=== PATIENT | female | born 1935 | race Caucasian/White ===

== ENCOUNTER 2016-09-23 11:17 | Inpatient (IN) | payer MEDICARE ==
--- NOTE | 2016-09-23 11:23 | ERNOTE ---
Neuro HPI ER Record Presenting Symptoms: weakness, confusion Time Seen by Provider: 09/23/16 11:17 Source: EMS Exam Limitations: clinical condition Allergies/Adverse Reactions: Allergies Allergy/AdvReac Type Severity Reaction Status Date / Time codeine Allergy Severe Anaphylaxis Verified 04/07/14 15:05 acetaminophen [From Tylenol] Allergy Intermediate Itching Verified 04/07/14 15: 05 Penicillins Allergy Intermediate Itching Verified 04/07/14 15:05 morphine Allergy Mild Nausea Verified 04/07/14 15:05 oxycodone [Oxycodone] Allergy Mild Itching Verified 04/11/14 10:48 tramadol Allergy Mild Itching Verified 04/07/14 15:05 Home Medications: HOME MEDICATIONS Amlodipine Besylate [Norvasc] 10 mg PO DAILY 04/07/14 [Last Taken Unknown] Glipizide [Glucotrol Xl] 2.5 mg PO DAILY 04/07/14 [Last Taken Unknown] Insulin Detemir [Levemir] 25 units SQ DAILY 04/07/14 [Last Taken Unknown] Omeprazole [Prilosec] 40 mg PO DAILY 04/07/14 [Last Taken Unknown] RX: Lisinopril 40 mg PO DAILY 04/07/14 [Last Taken Unknown] RX: Simvastatin 40 mg PO DAILY 04/07/14 [Last Taken Unknown] RX: Oxycodone HCl 5 mg PO PRN PRN 04/11/14 [Last Taken Unknown] - History of Present Illness Narrative: Patients neighbor initiated a well check by the police this morning who fund the patient unresponsive and initiated ambulance transfer to the hospital. Unkown when patient was last seen normal Date (Duration): 09/23/16 Time (Timing): 11:00 Onset: cannot confirm onset - Character of Deficits Baseline Cognition: Present: alert, oriented x 4 Review of Systems - Narrative Narrative: unable to obtain - Patient's Past Medical History Patient History - Medical: Diabetes Type 2 Patient History - Cardiac/Respiratory: Hypertension Physical Exam - Physical Exam General Appearance: Present: wd/wn, alert, no apparent distress Eye Exam: PERRL: bilateral, Other: bilateral - pupils deviated to the left Ears, Nose, Throat: Present: normal pharynx, dry mucous membranes Respiratory: Present: no respiratory distress, normal breath sounds, lungs clear Cardiovascular/Chest: Present: regular rate, rhythm Gastrointestinal/Abdominal: Present: nondistended, soft Neurological Exam: Present: other - right side flacid, patient moves left arm, does not follow up commands Skin Exam: Present: normal color, warm/dry [place] Coma Scale - Assess Eye Opening: Spontaneous Motor: Localizes to Pain Verbal: None - Total Coma Scale Total: 10 Initial Stroke Assessment - NIH Stroke Scale Level of Consciousness: Alert Right Arm Motor (10 sec hold): No movement Left Arm Motor (10 sec hold): Not testable Right Leg Motor (5 sec hold): Not testable Left Leg Motor (5 sec hold): Not testable Limb Ataxia (finger/nose heel/jiménez): Untestable Dysarthria (speech clarity): Untestable ED Progress - Results and Orders Patient's Lab Results:: I have reviewed the patient's lab results. - Vital Signs Patient's Vital Signs:: I have reviewed the patient's vital signs. - EKG EKG: NSR, nonspecific ST T wave changes EKG read: Interp. by me - X-Ray X-Ray #1 X-Ray: chest - chronic changes, no acute Interpretation: Reviewed by me - CT/Ultrasound CT/Ultrasound Narrative: CT head no acute (discussed with radiologist) - Progress/Reassessment Chief Complaint: CerebroVascular Accident Progress Note-Subjective: 09/23/16 11:46 patient moving both feet (toes), looking straight ahead, not following commands 09/23/16 12:00 sister at bedside, patient turning head to her voice, still not following commands 09/23/16 12:10 blood pressure over 200 systolic, will give labetolol 09/23/16 13:19 no change in neuro exam, BP 182/95 sister talked to son 09/23/16 15:26 exam unchanged, opens eyes when spoken too, doesn't follow commands, moves left arm and leg 09/23/16 15:26 called and talked to Tang Dunn (son) explained symptoms and diagnosis of stroke with poor chances of recovery at this point, son would prefer admission here rather than transfer discussed code status at length, decided on DNR (no CPR, no intubation) 09/23/16 15:[address] Mantilla, okay to admit, get MRI, insulin sliding scale, labetolol for blood pressure over 200 Departure Clinical Impression: CVA (cerebral vascular accident) Qualifiers: CVA mechanism: unspecified Qualified Code(s): I63.9 - Cerebral infarction, unspecified - Departure Disposition: [facility] Condition: Fair
[2016-09-23] MEDS ORDERED: LABETALOL HCL 5 MG/ML VIAL IV ONE (12:09)
[2016-09-23 12:22] LABS: Hematocrit 41.5 % (37.0-47.0); Hemoglobin 13.7 gm/dL (12.5-16.0); Mean Cell Volume 86.3 fl (78-100); Mean Corpuscular Hemoglobin 28.5 pg (27-31); Mean Platelet Volume 10.6 fl (6.0-9.5); Neutrophil # 9.2 K/mm3 (1.3-6.0); Neutrophil % 79.5 % (42-75.0); Platelet Count 210 K/mm3 (150-450); Red Blood Count 4.81 M/mm3 (4.2-5.4); Red Cell Distribution Width 13.3 % (11.5-14.0); White Blood Count 11.5 K/mm3 (4.0-10.5)
[2016-09-23 12:30] LABS: INR 1.06 INR (0.90-1.10); Partial Thrombolplastin Time 25.2 Seconds (24-32)
[2016-09-23 12:35] LABS: Albumin * 3.9 gm/dl (3.4-5.0); Anion Gap 16.4 mmol/L (6.8-13.8); Ca. Corrected For Albumin 8.6 mg/dL (8.4-10.2); Calcium * 8.8 mg/dL (7.9-10.9); Carbon Dioxide 26.9 mmol/L (24-32.6); Potassium 4.3 mmol/L (3.4-4.6); Total Protein 7.5 gm/dL (6.2-8.2)
[2016-09-23 14:04] LABS: Urine Bilirubin Negative (NEGATIVE); Urine Blood 25 /ul (NEGATIVE); Urine Ketone 5 mg/dL (NEGATIVE); Urine Nitrite Negative (NEGATIVE); Urine Protein 100 mg/dL (NEGATIVE); Urine Specific Gravity 1.025 SP.GR. (1.005-1.010); Urine Urobilinogen Normal (NORMAL)
[2016-09-23 14:18] LABS: Urine Appearance Slightly Cloudy; Urine Bacteria 4+; Urine Color Yellow; Urine RBC TRACE /hpf (0-5); Urine WBC None Seen /hpf (0-5)
[2016-09-23] MEDS ORDERED: ASPIRIN 300 MG SUPP.RECT RC ONE ×2 (14:32→14:34)
[2016-09-23] MEDS ORDERED: LABETALOL HCL 5 MG/ML VIAL IV PRN (16:11)
--- NOTE | 2016-09-23 17:49 | HP ---
[id number] 17:24 Chief Complaint: unresponsiveness History of Present Illness: Nkechi Mlegar, is an 81-year-old white female, with previous medical history of diabetes mellitus type 2, essential hypertension, hyperlipidemia, myocardial infarction, COPD who was brought to the emergency room today on 09/22/2016 because of unresponsiveness. The neighbor of the patient did not see her today and so she called the police to do a check on her. When they went into the house, she was found unresponsive and so they brought her to the emergency room. She was found to have right hemiparesis/ hemiplegia. She was unresponsive. Her CT scan showed no evidence of acute intracranial process . As per her nieces, who are with her bedside, the last time her their mother was able to talk to her was last Friday. She called to tell her that she was not be able to go visit her brother her because she was not feeling well. Her blood pressure in the emergency room was over 200 and so she got an IV bolus of labetalol. She was then admitted for further evaluation and treatment. The emergency room doctor was able to talk to her son who made her a DNR. - Patient's Past Medical History Patient History - Medical: Diabetes Type 2, GERD Patient History - Cardiac/Respiratory: COPD, Hypertension, Hyperlipidemia, Myocardial Infarction Patient History - Cancer: History Unknown - Family History Father Family History - Cardiac/Respiratory: Hypertension Mother Family History - Cardiac/Respiratory: Myocardial Infarction Review Of Systems (GEN) - Review of Systems EENTM: Present: No Symptoms Reported Respiratory: Present: No Symptoms Reported Cardiac: Present: No Symptoms Reported Abdominal: Present: No Symptoms Reported Genitourinary: Present: No Symptoms Reported Musculoskeletal: Present: No Symptoms Reported Neurological: Present: No Symptoms Reported Skin: Present: No Symptoms Reported Endocrine: Present: No Symptoms Reported Misc: All systems neg except as marked - Patient is not answering verbally to my questions, did squeeze with her left hand and moved her left foot and toes with my command. Allergies/Adverse Reactions: Allergies Allergy/AdvReac Type Severity Reaction Status Date / Time codeine Allergy Severe Anaphylaxis Verified 04/07/14 15:05 acetaminophen [From Tylenol] Allergy Intermediate Itching Verified 04/07/14 15: 05 Penicillins Allergy Intermediate Itching Verified 04/07/14 15:05 morphine Allergy Mild Nausea Verified 04/07/14 15:05 oxycodone [Oxycodone] Allergy Mild Itching Verified 04/11/14 10:48 tramadol Allergy Mild Itching Verified 04/07/14 15:05 tuberculin,PPD,multi-puncture Allergy Verified 09/23/16 17:56 Home Medications: HOME MEDICATIONS Amlodipine Besylate [Norvasc] 10 mg PO DAILY 04/07/14 [Last Taken Unknown] Glipizide [Glucotrol Xl] 2.5 mg PO DAILY 04/07/14 [Last Taken Unknown] Insulin Detemir [Levemir] 25 units SQ DAILY 04/07/14 [Last Taken Unknown] Lisinopril 40 mg PO DAILY 04/07/14 [Last Taken Unknown] Omeprazole [Prilosec] 40 mg PO DAILY 04/07/14 [Last Taken Unknown] Simvastatin 40 mg PO DAILY 04/07/14 [Last Taken Unknown] Oxycodone HCl 5 mg PO PRN PRN 04/11/14 [Last Taken Unknown] Metformin HCl [Metformin HCl ER] 500 mg PO 09/23/16 [Last Taken Unknown] Exam - Exam Vital Signs: Vital Signs - Last Taken Temp 36.2 C L 09/23/16 11:35 Pulse 85 09/23/16 15:17 Resp 19 09/23/16 15:17 BP 176/94 09/23/16 15:17 Pulse Ox 93 09/23/16 15:17 Constitutional: Present: Obtunded, Elderly, Thin and frail ENT Exam: Present: hearing grossly normal Eye Exam: bilateral eye: other - unable to accurately exam- closes her eyes Neck: Present: supple Back Exam: Present: other - not examined Breasts: Present: Exam deferred Respiratory: Present: decreased breath sounds, No rales, No wheezing Cardiovascular/Chest: Present: regular rate, rhythm, no JVD, no murmur Abdomen: Present: Normal bowel sounds, soft, nontender, nondistended Extremity: Present: no pedal edema, no calf tenderness Neurologic: Present: motor weakness - right, disoriented x 3 Diagnostic Studies: Laboratory Results WBC 11.5 K/mm3 (4.0-10.5) H 09/23/16 11:36 RBC 4.81 M/mm3 (4.2-5.4) 09/23/16 11:36 Hgb 13.7 gm/dL (12.5-16.0) 09/23/16 11:36 Hct 41.5 % (37.0-47.0) 09/23/16 11:36 MCV 86.3 fl (78-100) 09/23/16 11:36 MCH 28.5 pg (27-31) 09/23/16 11:36 MCHC 33.0 g/dl (32-36) 09/23/16 11:36 RDW 13.3 % (11.5-14.0) 09/23/16 11:36 Plt Count 210 K/mm3 (150-450) 09/23/16 11:36 MPV 10.6 fl (6.0-9.5) H 09/23/16 11:36 Immature Gran % (Auto) 0.50 % (0.001-0.429) H 09/23/16 11:36 Immature Gran # (Auto) 0.06 K/mm3 (0.000-0.0310) H 09/23/16 11:36 Neutrophils % 79.5 % (42-75.0) H 09/23/16 11:36 Lymphocytes % 13.2 % (20-51) L 09/23/16 11:36 Monocytes % 6.6 % (0.0-9) 09/23/16 11:36 Eosinophils % 0.1 % (0.0-3.0) 09/23/16 11:36 Basophils % 0.1 % (0.0-1.0) 09/23/16 11:36 Nucleated RBC % 0.0 k/mm3 (0-1) 09/23/16 11:36 Neutrophils # 9.2 K/mm3 (1.3-6.0) H 09/23/16 11:36 Lymphocytes # 1.5 k/mm3 (1.5-3.5) 09/23/16 11:36 Monocytes # 0.8 k/mm3 (0.0-1.0) 09/23/16 11:36 Eosinophils # 0.0 k/mm3 (0.0-0.7) 09/23/16 11:36 Absolute Basophils 0.0 k/mm3 (0.0-0.1) 09/23/16 11:36 ESR 15 mm/hr (0-15) 09/23/16 11:36 PT 11.0 Seconds (9.4-11.4) 09/23/16 11:36 INR (Anticoag Therapy) 1.06 INR (0.90-1.10) 09/23/16 11:36 PTT (Tyrese) 25.2 Seconds (24-32) 09/23/16 11:36 Sodium 137 mmol/L (132-142) 09/23/16 11:36 Plasma Sodium 140 mmol/L (130-142) 09/23/16 11:36 Potassium 4.3 mmol/L (3.4-4.6) 09/23/16 11:36 Chloride 98 mmol/L (97-106) 09/23/16 11:36 Carbon Dioxide 26.9 mmol/L (24-32.6) 09/23/16 11:36 Anion Gap 16.4 mmol/L (6.8-13.8) H 09/23/16 11:36 BUN 27 mg/dL (3-23) H 09/23/16 11:36 Creatinine 1.23 mg/dL (0.4-1.4) 09/23/16 11:36 Est GFR (Non-Af Amer) 44 mL/min (60-130) L 09/23/16 11:36 BUN/Creatinine Ratio 22.0 (9.0-21.6) H 09/23/16 11:36 Random Glucose 289 mg/dL (70-110) H 09/23/16 11:36 Calcium 8.8 mg/dL (7.9-10.9) 09/23/16 11:36 Calcium Adj for Albumin 8.6 mg/dL (8.4-10.2) 09/23/16 11:36 Total Bilirubin 1.0 mg/dL (0.0-1.1) 09/23/16 11:36 AST 29 U/L (0-48) 09/23/16 11:36 ALT 22 U/L (19-67) 09/23/16 11:36 Alkaline Phosphatase 96 U/L (50-170) 09/23/16 11:36 Total Protein 7.5 gm/dL (6.2-8.2) 09/23/16 11:36 Albumin 3.9 gm/dl (3.4-5.0) 09/23/16 11:36 Urine Color Yellow 09/23/16 13:48 Urine Appearance Slightly cloudy 09/23/16 13:48 Urine pH 6.0 pH (5.0-7.0) 09/23/16 13:48 Ur Specific [place] 1.025 SP.GR. (1.005-1.010) 09/23/16 13:48 Urine Protein 100 mg/dL (NEGATIVE) H 09/23/16 13:48 Urine Glucose (UA) 500 mg/dL (NEGATIVE) H 09/23/16 13:48 Urine Ketones 5 mg/dL (NEGATIVE) 09/23/16 13:48 Urine Blood 25 /ul (NEGATIVE) H 09/23/16 13:48 Urine Nitrate Negative (NEGATIVE) 09/23/16 13:48 Urine Bilirubin Negative mg/dl (NEGATIVE) 09/23/16 13:48 Prot Sulfosalicylic Acd 4+ mg/dL (0) H 09/23/16 13:48 Urine Urobilinogen Normal EU/dl (NORMAL) 09/23/16 13:48 Ur Leukocyte Esterase Negative /ul (NEGATIVE) 09/23/16 13:48 Urine RBC Trace /hpf (0-5) 09/23/16 13:48 Urine WBC None seen /hpf (0-5) 09/23/16 13:48 Ur Epithelial Cells None seen /hpf (0-5) 09/23/16 13:48 Urine Bacteria 4+ (NONE) H 09/23/16 13:48 Urine Culture Comments No culture indicated 09/23/16 13:48 Assessment/Plan - Assessment/Plan (1) CVA (cerebral vascular accident) Assessment: with right hemiparesis. Will get MRI in the morning, CUS, Echo with bubble study. Will refer her to PT/OT. Will leave it up to her PCP is wants to get neurology consult and will start her on ASA. Problem: Acute Qualifiers: CVA mechanism: unspecified Qualified Code(s): I63.9 - Cerebral infarction, unspecified (2) Hypertension Assessment: uncontrolled. Problem: Chronic Qualifiers: Hypertension type: essential hypertension Qualified Code(s): I10 - Essential (primary) hypertension (3) Diabetes mellitus type 2 in nonobese Assessment: will do accuchecks. Problem: Chronic (4) Hyperlipidemia Problem: Acute Qualifiers: Hyperlipidemia type: mixed hyperlipidemia Qualified Code(s): E78.2 - Mixed hyperlipidemia
[2016-09-23 18:19] LABS: CRP 1.2 mg/dL (0.0-0.9); Chol/HDL Risk Ratio 6.8 mg/dL (3.3-4.4)
[2016-09-23] MEDS: INSULIN LISPRO 100 UNITS/ML VIAL SC SCH ×2 (18:20→21:44)
[2016-09-23] MEDS: NORMAL SALINE 1,000 ML IV PRN (20:57)
[2016-09-24] MEDS: INSULIN LISPRO 100 UNITS/ML VIAL SC SCH ×5 (05:05→20:25)
[2016-09-24] MEDS: NORMAL SALINE 1,000 ML IV PRN ×2 (07:01→20:23)
--- NOTE | 2016-09-24 08:58 | PN ---
Subjective - Date and Time Seen Date: 09/24/16 Time: 08:32 Subjective Narrative: Patient seen today no acute distress, she is non-verbal and respond to tactile and verbal commands. Objective Objective Narrative: No response due to medical condition - Review of Systems Generalized/Overall Review: Reports: No Symptoms Reported EENTM: Reports: No Symptoms Reported Respiratory: Reports: No Symptoms Reported Cardiac: Reports: No Symptoms Reported Abdominal: Reports: No Symptoms Reported Genitourinary Symptoms: Reports: No Symptoms Reported Musculoskeletal Complaints: Reports: No Symptoms Reported Neurological: Reports: No Symptoms Reported Skin: Reports: No Symptoms Reported - Vitals Vitals: Last Vital Signs Temp 37.3 C 09/24/16 06:18 Pulse 91 09/24/16 06:18 Resp 20 09/24/16 06:18 BP 158/80 09/24/16 07:17 Pulse Ox 97 09/24/16 06:18 - Exam Constitutional: Present: Cooperative, Obtunded, Elderly, Thin and frail ENT Exam: Present: moist mucous membranes, other - dentures, gag reflex Neck: Present: full range of motion Breasts: Present: Exam deferred Respiratory: Present: chest non-tender, lungs clear, normal breath sounds, no respiratory distress Cardiovascular/Chest: Present: normal peripheral pulses, regular rate, rhythm, no chest tenderness, no edema, no gallop Abdomen: Present: Normal bowel sounds, soft, nontender, nondistended, no rebound tenderness /Rectal: Present: Exam deferred Extremity: Present: non-tender, normal inspection, other - left foot dosiflex, right foot plantar flex ,left hand 5/5,( Rightside hemiparesis) Neurologic: Present: facial droop - rightside, motor weakness, depressed affect Appearance: Present: other - flat affect Cauti Physician Documentation - Urinary Catheter Management Urethral (Escalante) Date of Insertion: 09/23/16 Time of Insertion: 13:00 Assessment/Plan Plan Narrative: CVA- CT head:No acute intracranial hemorrhage or mass affect. Age related cortical atrophy and periventricular white matter . chronic ischemic changes and present intracranial atherosclerotic calcification noted. Aspirin was given overnight Initiated telemetry currently NSR MRI head, carotid duplex and echo with bubble study pending CK pending concern for rhabdomyolysis: pt was found unresponsive on the floor at home. Continue with PT/OT evaluation and treatment Keep NPO until Speech/ swallow evaluation completed , pt observed to have gag reflex. In acute stage keep SBP > 160. PRN labetalol for SBP> 200 Monitor Vital signs Continue with neuro checks Safety measures while hospitalized Anticipate placement upon discharge with extensive therapy Hyperlipidemia On adm Lipid panel elevated cholesterol 316----> LDL 243-----> HDL 46 Anticipate initiating statin when pt is able to take oral medications Hypertension Today BP 189/87-----> 158/80 In acute stage keep SBP > 160. PRN labetalol for SBP> 200 Monitor Vital signs Diabetes Monitor AC+HS and lispro Will hold insulin while pt is NPO Code status : Full VTE ppx: Lovenox - Problems/Diagnosis (1) CVA (cerebral vascular accident) Problem: Acute Qualifiers: CVA mechanism: unspecified Qualified Code(s): I63.9 - Cerebral infarction, unspecified (2) Hyperlipidemia Problem: Acute Qualifiers: Hyperlipidemia type: mixed hyperlipidemia Qualified Code(s): E78.2 - Mixed hyperlipidemia (3) Diabetes mellitus type 2 in nonobese Problem: Chronic (4) Hypertension Problem: Chronic Qualifiers: Hypertension type: essential hypertension Qualified Code(s): I10 - Essential (primary) hypertension
[2016-09-24] MEDS: ENOXAPARIN SODIUM 40 MG/0.4 ML SYRG SC SCH (09:47)
[2016-09-24 10:45] LABS: CKMB 1.9 ng/mL (0.0-9.0)
[2016-09-24] MEDS ORDERED: LORazepam 2 MG/ML DISP.SYRIN IV ONE (11:00)
[2016-09-24] MEDS ORDERED: PANTOPRAZOLE SODIUM 40 MG in NORMAL SALINE 100 ML IV SCH (12:30)
[2016-09-24] MEDS: ASPIRIN 300 MG SUPP.RECT RC SCH (12:44)
[2016-09-24] MEDS: ONDANSETRON HCL/PF 2 MG/ML VIAL IV PRN (14:16)
--- NOTE | 2016-09-24 16:09 | PN ---
Progess Note - Interim Narrative: 09/24/16 16:[address] Solitario neuro service, His recommendations are : clinically pt had a CVA thats not showing on MRI head. Will plan for repeated MRI within a day when pt is able to remain in position. Anticipate for intensive inpt rehab after physical therapy recommendations. Continue with aspirin and statin when swallow eval complete or consider NGT if pt remain dysphagic vs PEG placement. No need for transfer as pt is outside the window for treatment with [facility]. Continue with medical management of blood glucose and blood pressure. 09/24/16 16:08 Spoke with Pt sister she was made aware of neuro recommendations. Per sister Pt son (CARLOS) is on flight traveling to [place] from [place], he will be here tomorrow to discuss in more details.
[2016-09-24] MEDS: ATORVASTATIN CALCIUM 40 MG TABLET PO SCH (20:21)
[2016-09-25] MEDS: INSULIN LISPRO 100 UNITS/ML VIAL SC SCH ×6 (00:38→20:29)
[2016-09-25 05:36] LABS: Hematocrit 32.7 % (37.0-47.0); Hemoglobin 10.7 gm/dL (12.5-16.0); Mean Cell Volume 87.7 fl (78-100); Mean Corpuscular Hemoglobin 28.7 pg (27-31); Mean Corpuscular Hgb Conc 32.7 g/dl (32-36); Mean Platelet Volume 10.1 fl (6.0-9.5); Platelet Count 137 K/mm3 (150-450); Red Blood Count 3.73 M/mm3 (4.2-5.4); Red Cell Distribution Width 13.2 % (11.5-14.0)
[2016-09-25 05:57] LABS: Anion Gap 13.3 mmol/L (6.8-13.8); BUN/Creatinine Ratio 23.1 (9.0-21.6); Calcium * 8.2 mg/dL (7.9-10.9); Carbon Dioxide 25.2 mmol/L (24-32.6); Estimated Creat Clear 42.9; Potassium 3.5 mmol/L (3.4-4.6)
[2016-09-25] MEDS: PANTOPRAZOLE SODIUM 40 MG TABLET.EC PO SCH (06:52)
[2016-09-25] MEDS: ASPIRIN 300 MG SUPP.RECT RC SCH (08:52)
[2016-09-25] MEDS: ASPIRIN 81 MG TABLET.DR PO SCH (08:52)
[2016-09-25] MEDS: ENOXAPARIN SODIUM 40 MG/0.4 ML SYRG SC SCH (08:52)
[2016-09-25] MEDS: LISINOPRIL 40 MG TABLET PO SCH (08:52)
[2016-09-25] MEDS: ATORVASTATIN CALCIUM 40 MG TABLET PO SCH (20:31)
[2016-09-25] MEDS: NORMAL SALINE 1,000 ML IV PRN (21:39)
[2016-09-26] MEDS: PANTOPRAZOLE SODIUM 40 MG TABLET.EC PO SCH (07:58)
[2016-09-26] MEDS: INSULIN LISPRO 100 UNITS/ML VIAL SC SCH ×4 (07:59→20:20)
[2016-09-26] MEDS ORDERED: LORazepam 2 MG/ML DISP.SYRIN IV PRN (08:00)
[2016-09-26 08:02] LABS: Hemoglobin 11.4 gm/dL (12.5-16.0); Mean Cell Volume 87.7 fl (78-100); Mean Corpuscular Hemoglobin 28.6 pg (27-31); Mean Corpuscular Hgb Conc 32.6 g/dl (32-36); Mean Platelet Volume 10.5 fl (6.0-9.5); Platelet Count 150 K/mm3 (150-450); Red Blood Count 3.99 M/mm3 (4.2-5.4); Red Cell Distribution Width 13.2 % (11.5-14.0); White Blood Count 8.1 K/mm3 (4.0-10.5)
[2016-09-26 08:15] LABS: Anion Gap 11.4 mmol/L (6.8-13.8); BUN/Creatinine Ratio 19.2 (9.0-21.6); Calcium * 8.6 mg/dL (7.9-10.9); Carbon Dioxide 27.8 mmol/L (24-32.6); Estimated Creat Clear 39.4; Potassium 3.2 mmol/L (3.4-4.6)
--- NOTE | 2016-09-26 08:19 | PN ---
Subjective - Date and Time Seen Date: 09/25/16 Time: 07:30 Subjective Narrative: Patient seen and examined at bedside on 09.25.2016. No acute issues overnight. Patient is more alert this AM but still does not follow all commands appropriately and has difficulty communicating. Objective Objective Narrative: Thorough ROS unable to obtain secondary to clinical condition - Review of Systems Generalized/Overall Review: Reports: No Symptoms Reported EENTM: Reports: No Symptoms Reported Respiratory: Reports: No Symptoms Reported Cardiac: Reports: No Symptoms Reported Abdominal: Reports: No Symptoms Reported Genitourinary Symptoms: Reports: No Symptoms Reported Musculoskeletal Complaints: Reports: No Symptoms Reported Neurological: Reports: No Symptoms Reported Skin: Reports: No Symptoms Reported Endocrine: Reports: No Symptoms Reported - Vitals Vitals: Last Vital Signs Temp 36.6 C 09/26/16 08:07 Pulse 74 09/26/16 08:07 Resp 18 09/26/16 08:07 BP 196/88 09/26/16 08:07 Pulse Ox 96 09/26/16 08:07 - Abnormal Lab Findings Abnormal Lab Findings: Abnormal Lab Results 09/26/16 Range/Units 07:55 RBC 3.99 L (4.2-5.4) M/mm3 Hgb 11.4 L (12.5-16.0) gm/dL Hct 35.0 L (37.0-47.0) % MPV 10.5 H (6.0-9.5) fl - Exam Constitutional: Present: Alert, No distress, Elderly, Thin and frail. Absent: Oriented x3 ENT Exam: Present: moist mucous membranes Respiratory: Present: lungs clear, normal breath sounds, no respiratory distress , no accessory muscle use Cardiovascular/Chest: Present: regular rate, rhythm, no edema, systolic murmur Abdomen: Present: Normal bowel sounds, soft, nontender, nondistended Extremity: Present: normal inspection, no pedal edema Skin Exam: Present: normal color, warm/dry Neurologic: Present: alert, aphasia. Absent: oriented x 3 Cauti Physician Documentation - Urinary Catheter Management Urethral (Escalante) Date of Insertion: 09/23/16 Time of Insertion: 13:00 Date of Removal: 09/25/16 Time of Removal: 11:15 Assessment/Plan Plan Narrative: IMPRESSION & PLAN: Acute Encephalopathy -Differential includes: Hypoxic Ischemic Encephalopathy (ischemic stroke) vs. hypertensive encephalopathy vs. toxic-metabolic encephalopathy -Work-up thus far unrevealing -EEG ordered -Repeat MRI tomorrow to monitor for evolution of stroke or other abnormality -Continue evaluation and treatment by PT, OT and CURATOR HERBARIUM Type 2 DM -Monitor BG Q4H and PRN -Lispro correction insulin Q4H Hypertension: Start Lisinopril 40mg PO daily once patient is able to tolerate PO intake Hyperlipidemia: Start Atorvastatin 40mg PO daily once patient is able to tolerate PO intake GI PPX: IV PPI until patient is able to tolerate PO and then transition to PO PPI (patient is on omeprazole at home) VTE PPX: SCDs, Lovenox CODE STATUS: DNR DISPOSITION: Patient will need ongoing therapies and will most likely need SNF at discharge. I appreciate assistance from our care coordinators in making these arrangements. Patient will hopefully be medically ready for discharge in the next 2-3 days. - Problems/Diagnosis (1) Encephalopathy acute Problem: Acute (2) Ischemic stroke Problem: Suspected (3) Hyperlipidemia Problem: Chronic Qualifiers: Hyperlipidemia type: mixed hyperlipidemia Qualified Code(s): E78.2 - Mixed hyperlipidemia (4) Diabetes mellitus type 2 in nonobese Problem: Chronic (5) Hypertension Problem: Chronic Qualifiers: Hypertension type: essential hypertension Qualified Code(s): I10 - Essential (primary) hypertension
--- NOTE | 2016-09-26 08:30 | ECHO ---
This report is available in the EMR
--- NOTE | 2016-09-26 08:39 | PN ---
Subjective - Date and Time Seen Date: 09/26/16 Time: 07:45 Subjective Narrative: Patient seen and examined at bedside. No acute issues overnight. Patient is alert, eating breakfast independently and talkative this AM. She still has some trouble with word finding but overall she has made marked improvement since admission. Objective - Review of Systems Generalized/Overall Review: Reports: No Symptoms Reported EENTM: Reports: No Symptoms Reported Respiratory: Reports: No Symptoms Reported Cardiac: Reports: No Symptoms Reported Abdominal: Reports: No Symptoms Reported Genitourinary Symptoms: Reports: No Symptoms Reported Musculoskeletal Complaints: Reports: No Symptoms Reported Neurological: Reports: No Symptoms Reported Skin: Reports: No Symptoms Reported Endocrine: Reports: No Symptoms Reported Misc: All systems neg except as marked - Vitals Vitals: Last Vital Signs Temp 36.6 C 09/26/16 08:07 Pulse 74 09/26/16 08:07 Resp 18 09/26/16 08:07 BP 196/88 09/26/16 08:07 Pulse Ox 96 09/26/16 08:07 - Abnormal Lab Findings Abnormal Lab Findings: Abnormal Lab Results 09/26/16 09/26/16 Range/Units 07:55 07:55 RBC 3.99 L (4.2-5.4) M/mm3 Hgb 11.4 L (12.5-16.0) gm/dL Hct 35.0 L (37.0-47.0) % MPV 10.5 H (6.0-9.5) fl Plasma Sodium 143 H (130-142) mmol/L Potassium 3.2 L (3.4-4.6) mmol/L Est GFR (Non-Af Amer) 57 L (60-130) mL/min Random Glucose 195 H (70-110) mg/dL Creatine Kinase 295 H (0-259) U/L - Exam Constitutional: Present: Alert, Cooperative, Elderly, Thin and frail. Absent: Oriented x3 ENT Exam: Present: moist mucous membranes Respiratory: Present: lungs clear, normal breath sounds, no respiratory distress , no accessory muscle use Cardiovascular/Chest: Present: regular rate, rhythm, no edema, systolic murmur Abdomen: Present: Normal bowel sounds, soft, nontender, nondistended Extremity: Present: normal inspection, no pedal edema Skin Exam: Present: normal color, warm/dry Neurologic: Present: alert, aphasia - Expressive aphasia. Absent: oriented x 3 Cauti Physician Documentation - Urinary Catheter Management Urethral (Escalante) Date of Insertion: 09/23/16 Time of Insertion: 13:00 Date of Removal: 09/25/16 Time of Removal: 11:15 Assessment/Plan Plan Narrative: IMPRESSION & PLAN: Acute Encephalopathy -Differential includes: Hypoxic Ischemic Encephalopathy (ischemic stroke) vs. hypertensive encephalopathy vs. toxic-metabolic encephalopathy -Work-up thus far unrevealing -EEG completed on 07.26.2017. Report pending. -Repeat MRI today to monitor for evolution of stroke or other abnormality -Continue evaluation and treatment by PT, OT and CUTTER OPERATOR BRICK Type 2 DM -Monitor BG AC, HS and PRN -Lispro correction insulin AC, HS Hypertension: Continue Lisinopril 40mg PO daily. BP remains elevated. Start amlodipine 10mg PO daily. Hyperlipidemia: Continue Atorvastatin 40mg PO daily. GI PPX: Continue home PPI VTE PPX: SCDs, Lovenox CODE STATUS: DNR DISPOSITION: Patient will need ongoing therapies and will most likely need SNF at discharge. I appreciate assistance from our care coordinators in making these arrangements. Patient will hopefully be medically ready for discharge in the next 1-2 days. - Problems/Diagnosis (1) Encephalopathy acute Problem: Acute (2) Ischemic stroke Problem: Suspected (3) Hyperlipidemia Problem: Chronic Qualifiers: Hyperlipidemia type: mixed hyperlipidemia Qualified Code(s): E78.2 - Mixed hyperlipidemia (4) Diabetes mellitus type 2 in nonobese Problem: Chronic (5) Hypertension Problem: Chronic Qualifiers: Hypertension type: essential hypertension Qualified Code(s): I10 - Essential (primary) hypertension
[2016-09-26] MEDS ORDERED: POTASSIUM CHLORIDE 40 MEQ/15 ML BTL PO ONE (09:00)
[2016-09-26] MEDS: amLODIPine BESYLATE 10 MG TABLET PO SCH (09:36)
[2016-09-26] MEDS: ASPIRIN 81 MG TABLET.DR PO SCH (09:36)
[2016-09-26] MEDS: ENOXAPARIN SODIUM 40 MG/0.4 ML SYRG SC SCH (09:36)
[2016-09-26] MEDS: LISINOPRIL 40 MG TABLET PO SCH (09:37)
[2016-09-26] MEDS ORDERED: LORazepam 2 MG/ML DISP.SYRIN IV ONE (11:22)
[2016-09-26] MEDS: ATORVASTATIN CALCIUM 40 MG TABLET PO SCH (20:22)
[2016-09-26] MEDS ORDERED: HALOPERIDOL 1 MG TABLET PO ONE (21:15)
[2016-09-27 06:16] LABS: Anion Gap 13.6 mmol/L (6.8-13.8); BUN/Creatinine Ratio 14.7 (9.0-21.6); Carbon Dioxide 28.4 mmol/L (24-32.6); Estimated Creat Clear 41.1
[2016-09-27] MEDS: PANTOPRAZOLE SODIUM 40 MG TABLET.EC PO SCH (06:47)
[2016-09-27] MEDS: INSULIN LISPRO 100 UNITS/ML VIAL SC SCH ×4 (06:48→21:25)
[2016-09-27] MEDS: amLODIPine BESYLATE 10 MG TABLET PO SCH (11:42)
[2016-09-27] MEDS: ASPIRIN 81 MG TABLET.DR PO SCH (11:42)
[2016-09-27] MEDS: LISINOPRIL 40 MG TABLET PO SCH (11:42)
[2016-09-27] MEDS: ENOXAPARIN SODIUM 40 MG/0.4 ML SYRG SC SCH (11:43)
--- NOTE | 2016-09-27 13:14 | PN ---
[id number] Narrative: Patient is sitting o the recliner. Follows commands but takes a few seconds before doing it or answering my questions. Objective - Review of Systems Generalized/Overall Review: Reports: Weakness. Denies: Chills, Fever EENTM: Reports: No Symptoms Reported Respiratory: Denies: Cough, Shortness of Breath Cardiac: Denies: Chest Pain, Edema, Palpitations Abdominal: Denies: Nausea, Vomiting Genitourinary Symptoms: Denies: Urgency, Frequency Musculoskeletal Complaints: Reports: Joint Pain - Vitals Vitals: Last Vital Signs Temp 36.7 C 09/27/16 09:00 Pulse 93 09/27/16 11:42 Resp 24 H 09/27/16 09:00 BP 144/85 09/27/16 11:42 Pulse Ox 95 09/27/16 09:00 - Abnormal Lab Findings Abnormal Lab Findings: Abnormal Lab Results 09/27/16 Range/Units 05:38 Potassium 3.0 L (3.4-4.6) mmol/L Random Glucose 173 H (70-110) mg/dL - Exam Constitutional: Present: Alert - AAO x 2, Looks Older than stated age Neck: Present: supple Breasts: Present: Exam deferred Respiratory: Present: decreased breath sounds, No rales, No wheezing Cardiovascular/Chest: Present: regular rate, rhythm, no JVD, no murmur Abdomen: Present: Normal bowel sounds, soft, nontender, nondistended Extremity: Present: no pedal edema, no calf tenderness Neurologic: Present: other - AAO x 2, slow in finding words to answer questions , no gross motor or sensory deficit Cauti Physician Documentation - Urinary Catheter Management Urethral (Escalante) Date of Insertion: 09/23/16 Time of Insertion: 13:00 Date of Removal: 09/25/16 Time of Removal: 11:15 Assessment/Plan - Problems/Diagnosis (1) Encephalopathy acute Problem: Acute Narrative: plan was to have a follow up MRI. ADDENDUM: bryan cancelled it yesterday as she was not able to keep still. she will have it on Friday. (2) Ischemic stroke Problem: Suspected Narrative: continue with PT/OT (3) Hypertension Problem: Chronic Qualifiers: Hypertension type: essential hypertension Qualified Code(s): I10 - Essential (primary) hypertension (4) Diabetes mellitus type 2 in nonobese Problem: Chronic (5) Hyperlipidemia Problem: Chronic Qualifiers: Hyperlipidemia type: mixed hyperlipidemia Qualified Code(s): E78.2 - Mixed hyperlipidemia
[2016-09-27] MEDS: ATORVASTATIN CALCIUM 40 MG TABLET PO SCH (21:29)
[2016-09-28] MEDS: PANTOPRAZOLE SODIUM 40 MG TABLET.EC PO SCH (07:12)
[2016-09-28] MEDS: INSULIN LISPRO 100 UNITS/ML VIAL SC SCH ×4 (07:13→21:09)
[2016-09-28] MEDS: ASPIRIN 81 MG TABLET.DR PO SCH (09:01)
[2016-09-28] MEDS: LISINOPRIL 40 MG TABLET PO SCH (09:03)
[2016-09-28] MEDS: amLODIPine BESYLATE 10 MG TABLET PO SCH (09:03)
[2016-09-28] MEDS: ENOXAPARIN SODIUM 40 MG/0.4 ML SYRG SC SCH (09:08)
--- NOTE | 2016-09-28 11:12 | PN ---
Subjective - Date and Time Seen Date: 09/28/16 Time: 10:57 Subjective Narrative: Patient as per son is doing better and follows command better. Her EEG showed moderate diffuse cerebral dysfunction. Objective - Review of Systems Generalized/Overall Review: Denies: Chills, Fever EENTM: Reports: No Symptoms Reported Respiratory: Denies: Cough, Shortness of Breath, Orthopnea Cardiac: Denies: Chest Pain, Edema, Palpitations Abdominal: Denies: Nausea, Vomiting Genitourinary Symptoms: Denies: Urgency, Frequency - Vitals Vitals: Last Vital Signs Temp 36.6 C 09/28/16 09:56 Pulse 85 09/28/16 09:56 Resp 20 09/28/16 09:56 BP 143/64 09/28/16 09:56 Pulse Ox 94 09/28/16 09:56 - Exam Constitutional: Present: Other - sleeping but woke up with name call. ENT Exam: Present: hearing grossly normal Neck: Present: supple Breasts: Present: Exam deferred Respiratory: Present: decreased breath sounds, No rales, No wheezing Cardiovascular/Chest: Present: regular rate, rhythm, no JVD, no murmur Abdomen: Present: Normal bowel sounds, soft, nontender, nondistended Extremity: Present: no pedal edema, no calf tenderness Cauti Physician Documentation - Urinary Catheter Management Urethral (Escalante) Date of Insertion: 09/23/16 Time of Insertion: 13:00 Date of Removal: 09/25/16 Time of Removal: 11:15 Assessment/Plan - Problems/Diagnosis (1) Encephalopathy acute Problem: Acute Narrative: etiology? metabolic? ischemic? EEG showed moderate diffuse cerebral dysfunction. 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 Will get neurology consult on Friday. (2) Ischemic stroke Problem: Suspected Narrative: will schedule her MRI on Friday. Son feels that she no longer needs the anesthesia for her MRI. i viraj leave that up to Dr. Collins. (3) Hypertension Problem: Chronic Qualifiers: Hypertension type: essential hypertension Qualified Code(s): I10 - Essential (primary) hypertension (4) Diabetes mellitus type 2 in nonobese Problem: Chronic (5) Hyperlipidemia Problem: Chronic Qualifiers: Hyperlipidemia type: mixed hyperlipidemia Qualified Code(s): E78.2 - Mixed hyperlipidemia
[2016-09-28] MEDS: POTASSIUM CHLORIDE 10 MEQ TABLET.SA PO SCH ×2 (12:09→17:33)
[2016-09-28] MEDS: ATORVASTATIN CALCIUM 40 MG TABLET PO SCH (21:12)
[2016-09-29] MEDS: PANTOPRAZOLE SODIUM 40 MG TABLET.EC PO SCH (07:16)
[2016-09-29] MEDS: INSULIN LISPRO 100 UNITS/ML VIAL SC SCH ×4 (07:17→22:11)
[2016-09-29] MEDS: ASPIRIN 81 MG TABLET.DR PO SCH (08:33)
[2016-09-29] MEDS: POTASSIUM CHLORIDE 10 MEQ TABLET.SA PO SCH ×2 (08:33→16:38)
[2016-09-29] MEDS: ENOXAPARIN SODIUM 40 MG/0.4 ML SYRG SC SCH (08:34)
[2016-09-29] MEDS: amLODIPine BESYLATE 10 MG TABLET PO SCH (08:35)
[2016-09-29] MEDS: LISINOPRIL 40 MG TABLET PO SCH (08:35)
--- NOTE | 2016-09-29 10:37 | PN ---
Subjective - Date and Time Seen Date: 09/29/16 Time: 10:35 Subjective Narrative: Jerilyn is AAO X 3. She and son feels she does need the anesthesia for her MRI tomorrow.. Positive increase frequency in urination. Objective - Review of Systems Generalized/Overall Review: Reports: Weakness. Denies: Chills, Fever EENTM: Reports: No Symptoms Reported Respiratory: Denies: Cough, Shortness of Breath Cardiac: Denies: Chest Pain, Edema Abdominal: Denies: Nausea, Vomiting Genitourinary Symptoms: Reports: Frequency. Denies: Urgency Musculoskeletal Complaints: Denies: Joint Pain - Vitals Vitals: Last Vital Signs Temp 36.9 C 09/29/16 05:00 Pulse 86 09/29/16 08:35 Resp 20 09/29/16 05:00 BP 133/60 09/29/16 08:35 Pulse Ox 93 09/29/16 05:00 - Exam Constitutional: Present: Alert, Oriented x3, Cooperative, Elderly ENT Exam: Present: hearing grossly normal Neck: Present: supple Breasts: Present: Exam deferred Respiratory: Present: decreased breath sounds, No rales, No wheezing Cardiovascular/Chest: Present: regular rate, rhythm, no JVD, systolic murmur - faint Abdomen: Present: Normal bowel sounds, soft, nontender, nondistended Extremity: Present: no pedal edema, no calf tenderness Neurologic: Present: facial droop - subtle, left? Cauti Physician Documentation - Urinary Catheter Management Urethral (Escalante) Date of Insertion: 09/23/16 Time of Insertion: 13:00 Date of Removal: 09/25/16 Time of Removal: 11:15 Assessment/Plan - Problems/Diagnosis (1) Encephalopathy acute Problem: Acute Narrative: for repeat MRI in the morning. neurology consult in am (2) Ischemic stroke Problem: Suspected Narrative: for repeat MRI in the morning. for neurology consult in the morning. (3) Hypertension Problem: Chronic Qualifiers: Hypertension type: essential hypertension Qualified Code(s): I10 - Essential (primary) hypertension (4) Diabetes mellitus type 2 in nonobese Problem: Chronic (5) Hyperlipidemia Problem: Chronic Qualifiers: Hyperlipidemia type: mixed hyperlipidemia Qualified Code(s): E78.2 - Mixed hyperlipidemia
[2016-09-29] MEDS: CALCIUM CARBONATE 500 MG TAB.CHEW PO PRN (20:03)
[2016-09-29] MEDS: ATORVASTATIN CALCIUM 40 MG TABLET PO SCH (22:11)
[2016-09-30] MEDS: INSULIN LISPRO 100 UNITS/ML VIAL SC SCH ×4 (06:46→20:11)
[2016-09-30] MEDS: PANTOPRAZOLE SODIUM 40 MG TABLET.EC PO SCH (06:46)
[2016-09-30] MEDS: amLODIPine BESYLATE 10 MG TABLET PO SCH (08:43)
[2016-09-30] MEDS: LISINOPRIL 40 MG TABLET PO SCH (08:43)
[2016-09-30] MEDS: ENOXAPARIN SODIUM 40 MG/0.4 ML SYRG SC SCH (08:44)
--- NOTE | 2016-09-30 13:03 | PN ---
[id number] Narrative: Eating her lunch. c/o left rib pain worst with coughing. increased frequency. had her MRI. Objective - Review of Systems Generalized/Overall Review: Reports: Weakness EENTM: Reports: No Symptoms Reported Respiratory: Reports: Cough Cardiac: Reports: Other - rib pain Abdominal: Denies: Nausea, Vomiting Genitourinary Symptoms: Reports: Frequency. Denies: Urgency - Vitals Vitals: Last Vital Signs Temp 36.6 C 09/30/16 11:01 Pulse 85 09/30/16 11:01 Resp 18 09/30/16 11:01 BP 152/70 09/30/16 11:01 Pulse Ox 98 09/30/16 11:01 - Exam Constitutional: Present: Alert, Oriented x3, Cooperative, Elderly ENT Exam: Present: hearing grossly normal Neck: Present: supple Breasts: Present: Exam deferred Respiratory: Present: lungs clear, normal breath sounds, other - positive tenderness, left chest Cardiovascular/Chest: Present: regular rate, rhythm, no JVD, no murmur Abdomen: Present: Normal bowel sounds, soft, nontender, nondistended Extremity: Present: no pedal edema, no calf tenderness Cauti Physician Documentation - Urinary Catheter Management Urethral (Escalante) Date of Insertion: 09/23/16 Time of Insertion: 13:00 Date of Removal: 09/25/16 Time of Removal: 11:15 Assessment/Plan - Problems/Diagnosis (1) Encephalopathy acute Problem: Acute Narrative: follow up MRI. Neurology to see patient today (2) Ischemic stroke Problem: Suspected Narrative: follow up official reading of MRI. Neurology to see patient today (3) Hypertension Problem: Chronic Qualifiers: Hypertension type: essential hypertension Qualified Code(s): I10 - Essential (primary) hypertension (4) Diabetes mellitus type 2 in nonobese Problem: Chronic (5) Hyperlipidemia Problem: Chronic Qualifiers: Hyperlipidemia type: mixed hyperlipidemia Qualified Code(s): E78.2 - Mixed hyperlipidemia (6) Frequency of urination Problem: Acute Narrative: will get UA and possible UCS if warranted (7) Chest wall pain Problem: Acute Narrative: rule rib contusion vs fracture. will get rib series
[2016-09-30] MEDS: POTASSIUM CHLORIDE 10 MEQ TABLET.SA PO SCH (13:06)
[2016-09-30] MEDS: ASPIRIN 81 MG TABLET.DR PO SCH (13:06)
[2016-09-30 15:43] LABS: Urine Bilirubin Negative (NEGATIVE); Urine Blood 250 /ul (NEGATIVE); Urine Ketone Negative (NEGATIVE); Urine Nitrite Negative (NEGATIVE); Urine Protein 30 mg/dL (NEGATIVE); Urine Urobilinogen Normal (NORMAL); Urine pH 6.5 pH (5.0-7.0)
[2016-09-30 16:07] LABS: Urine Appearance Cloudy; Urine Bacteria 1+; Urine Color Yellow; Urine WBC 25-50 /hpf (0-5)
[2016-09-30] MEDS ORDERED: ACETAMINOPHEN 500 MG TABLET PO PRN (16:33)
[2016-09-30] MEDS: CIPROFLOXACIN HCL 500 MG TABLET PO SCH (20:08)
[2016-09-30] MEDS: ATORVASTATIN CALCIUM 40 MG TABLET PO SCH (20:09)
[2016-09-30] MEDS: CALCIUM CARBONATE 500 MG TAB.CHEW PO PRN (23:01)
[2016-10-01] MEDS ORDERED: MAGNESIUM HYDROXIDE 30 ML UDC PO ONE (02:25)
[2016-10-01] MEDS ORDERED: MAG HYDROX/ALUMINUM HYD/SIMETH 30 ML UDC PO ONE (02:32)
[2016-10-01 04:24] LABS: Hematocrit 37.1 % (37.0-47.0); Mean Cell Volume 88.1 fl (78-100); Mean Corpuscular Hemoglobin 28.5 pg (27-31); Mean Corpuscular Hgb Conc 32.3 g/dl (32-36); Mean Platelet Volume 10.7 fl (6.0-9.5); Neutrophil # 8.4 K/mm3 (1.3-6.0); Neutrophil % 81.3 % (42-75.0); Platelet Count 252 K/mm3 (150-450); Red Blood Count 4.21 M/mm3 (4.2-5.4); Red Cell Distribution Width 13.3 % (11.5-14.0); White Blood Count 10.4 K/mm3 (4.0-10.5)
[2016-10-01 04:29] LABS: Anion Gap 13.5 mmol/L (6.8-13.8); Calcium * 10.3 mg/dL (7.9-10.9); Carbon Dioxide 28.9 mmol/L (24-32.6)
[2016-10-01 05:02] LABS: Potassium 6.4 mmol/L (3.4-4.6)
[2016-10-01] MEDS: PANTOPRAZOLE SODIUM 40 MG TABLET.EC PO SCH (07:32)
[2016-10-01] MEDS: INSULIN LISPRO 100 UNITS/ML VIAL SC SCH ×2 (07:33→11:23)
[2016-10-01] MEDS: CIPROFLOXACIN HCL 500 MG TABLET PO SCH (08:25)
[2016-10-01] MEDS: ASPIRIN 81 MG TABLET.DR PO SCH (08:25)
[2016-10-01] MEDS: amLODIPine BESYLATE 10 MG TABLET PO SCH (08:26)
[2016-10-01] MEDS: LISINOPRIL 40 MG TABLET PO SCH (08:27)
[2016-10-01] MEDS: ENOXAPARIN SODIUM 40 MG/0.4 ML SYRG SC SCH (08:33)
[2016-10-01] MEDS: ONDANSETRON HCL/PF 2 MG/ML VIAL IV PRN (08:38)
--- NOTE | 2016-10-01 12:08 | DS ---
(1) Encephalopathy Problem: Acute (2) Hyperlipidemia Problem: Chronic Qualifiers: Hyperlipidemia type: mixed hyperlipidemia Qualified Code(s): E78.2 - Mixed hyperlipidemia (3) Diabetes mellitus type 2 in nonobese Problem: Chronic (4) Hypertension Problem: Chronic Qualifiers: Hypertension type: essential hypertension Qualified Code(s): I10 - Essential (primary) hypertension (5) Rib fracture Problem: Acute Description of Stay: Date of admission: 09/23/16 Date of discharge 10/01/16 Hospital course: 81-year-old white female, with previous medical history of diabetes mellitus type 2, essential hypertension, hyperlipidemia, myocardial infarction, COPD who was brought to the emergency room 09/22/2016 because of unresponsiveness. The neighbor of the patient did not see her so she called the police to do a check on her. When they went into the house, she was found unresponsive and so they brought her to the emergency room. She was found to have right hemiparesis/ hemiplegia. She was unresponsive. Her CT scan showed no evidence of acute intracranial process . family stated before incident pt was able to walk and talk and she spoke with her on Friday before this adm. Her blood pressure in the emergency room was over 200 and so she got an IV bolus of labetalol. She was then admitted for further evaluation and treatment. per ER family wanted her DNR. During this adm MRI no acute intra-cranial abnormality, CXR: left rib fracture, carotid duplex Right internal and external ICA and left internal and external ICA < 50% stenosis.EEg- moderate cerebral dysfunction. MRi: no evidence acute infarct or intracranial mass, cortical atrophy. likely Acute Encephalopathy -Differential includes: Hypoxic Ischemic Encephalopathy (ischemic stroke) vs. hypertensive encephalopathy vs. toxic-metabolic encephalopathy -Work-up thus far unrevealing. Pt will have continued speech therapy, occupational therapy and physical therapy while at shelter. can follow up with neurology service, call for appt. repeated k+ 5.3, pt will have follow up lab 1-2 days and follow up with pcp. Procedures Performed: none Results and Findings: Laboratory Tests 10/01/16 10/01/16 10/01/16 04:20 04:20 13:00 WBC 10.4 Hgb 12.0 L Hct 37.1 Plt Count 252 Sodium 135 Potassium 6.4 H D 5.3 BUN 22 D Creatinine 1.22 Discharge Disposition: Other HealthCare facility Disposition: Other health care facility Condition: Stable Discharge Activity: Activity as tolerated Discharge Diet: Consistent carbs Discharge Level of Care:: SNF - Custodial Custodial Therapy: Physicial Therapy, Occupation Therapy, Speech Therapy Additional Patient Instructions (free text): F/U with Neurology at [facility] in two weeks please make appt Patient to follow up with Dr Collins. Patient to come into appointment. MD does not round at shelter. Potassium level on 10/03. Pt will have continued speech therapy, occupational therapy and physical therapy while at shelter. Complete Home Medications List: Complete Home Medication List: Glipizide 10 mg PO DAILY 09/24/16 Lisinopril [Zestril] 40 mg PO DAILY 09/24/16 Metformin HCl [Metformin HCl ER] 1,000 mg PO BID 09/24/16 Omeprazole 40 mg PO DAILY 09/24/16 Amb Orders for Discharge: Potassium Time Frame: 10/03/16, Location: Determined By Patient OT Evaluation and Treatment Location: Determined By Patient PT Evaluation and Treatment Location: Determined By Patient Speech Therapy Eval and Treat Location: Determined By Patient
[2016-10-01 16:21] VITALS: BP 123/60
[2016-10-01] MEDS ORDERED: SODIUM POLYSTYRENE SULFON/SORB 15 G/60 ML BTL PO SCH (17:00)
== END 2016-10-01 16:00 | DRG 77 ==
LOC: ER 11:17 → MS 15:54
PROVIDERS: ADMIT Internal Medicine; ATTEND Internal Medicine
DX: I67.4 Hypertensive encephalopathy (principal); G92 Toxic encephalopathy; G93.1 Anoxic brain damage, not elsewhere classified; R29.810 Facial weakness; E11.9 Type 2 diabetes mellitus without complications; I10 Essential (primary) hypertension; E78.2 Mixed hyperlipidemia; I25.2 Old myocardial infarction

== ENCOUNTER 2016-12-17 11:39 | Emergency (ER) | payer MEDICARE ==
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
[2016-12-17 14:44] VITALS: BP 145/88
== END 2016-12-17 13:45 | disposition home or self-care (01) ==
LOC: ER 11:39
DX: S00.01XA Abrasion of scalp, initial encounter (principal); W07.XXXA Fall from chair, initial encounter; E11.9 Type 2 diabetes mellitus without complications; K21.9 Gastro-esophageal reflux disease without esophagitis; I10 Essential (primary) hypertension

== ENCOUNTER 2017-02-17 00:01 | Emergency (ER) | payer MEDICARE ==
[2017-02-17 00:17] VITALS: BP 163/82
--- OUTSIDE RECORDS SUMMARY | 2017-02-17 01:28 | XMS REPORT | Summary of Care ---
:1935 Author Organization [facility] Address [address] [place] [id number] Care Team Providers Name Role Phone Muriel Mantilla Primary Care Physician Encounter Date(s): 11/05/16 - 11/05/[address] [address] [facility] Discharge Disposition: 01 Discharged to Home or Self Care Attending Physician: Bridget Driscoll MD Referring Physician: Bridget Driscoll MD Vital Signs Most recent to oldest [Reference Range]: 1 Temperature Tympanic [36.6-38.1 DegC] 36.5 DegC *LOW* (11/05/16 2:37 PM) Temperature C to F 97.7 (11/05/16 2:37 PM) Peripheral Pulse Rate [60-100 bpm] 92 bpm (11/05/16 2:37 PM) SpO2 [90-100 %] 96 % (11/05/16 2:37 PM) Blood Pressure [90-130/60-90 mmHg] 142/86mmHg *HI* (11/05/16 2:37 PM) Mean Arterial Pressure, Cuff 105 mmHg (11/05/16 2:37 PM) Most recent to oldest [Reference Range]: 1 Height/Length Measured 160 cm (11/05/16 2:37 PM) Weight Dosing 58.50 kg1 (11/05/16 3:05 PM) Weight Measured 58.5 kg (11/05/16 2:37 PM) BSA Measured 1.6 m2 (11/05/16 2:37 PM) Body Mass Index Measured 22.85 kg/m2 (11/05/16 2:37 PM) 1Result Comment: This result was because the dosing weight was either not entered or it is>30 days old. This result is based off: Weight Measured November 05, 2016 14:37:00 [employer] by Reyna Self RN Problem List Condition Effective Dates Status Health Status Informant COPD (chronic obstructive pulmonary Active disease)(Confirmed) DM type 2 (diabetes mellitus, type Active 2)(Confirmed) GERD (gastroesophageal reflux Active disease)(Confirmed) HLD (hyperlipidemia)(Confirmed) Active HTN (hypertension)(Confirmed) Active AL (myocardial infarction)(Confirmed) Active Allergies, Adverse Reactions, Alerts Substance Reaction Severity Status acetaminophen low heart rate Severe Active codeine Severe Active morphine itch, rash, slows breathing Severe Active OxyCODONE Hydrochloride ER Severe Active penicillin itch, rash Severe Active traMADol itch, rash Severe Active Medications amLODIPine Oral, Daily, 0 Refill(s), Start Date: 01/27/15 9:47:00 CDT Start Date: 01/27/15 Stop Date: 11/05/16 Status: Completedaspirin 81 mg oral tablet 1 tab(s), Oral, Daily, # 30 tab(s), 0 Refill(s), Start Date: 11/05/16 14:49:00 [employer] Start Date: 11/05/16 Status: Orderedgabapentin Oral, 0 Refill(s), Start Date: 01/27/15 9:48:00 CDT Start Date: 01/27/15 Stop Date: 11/05/16 Status: CompletedglipiZIDE Oral, Daily, 0 Refill(s), Start Date: 01/27/15 9:48:00 CDT Start Date: 01/27/15 Stop Date: 11/05/16 Status: CompletedLevemir Subcutaneous, 0 Refill(s), Start Date: 01/27/15 9:47:00 CDT Start Date: 01/27/15 Stop Date: 11/05/16 Status: CompletedLevemir 100 units/mL subcutaneous solution 10 units, Subcutaneous, HS, # 15 mL, 0 Refill(s), Start Date: 11/05/16 15:38:00 [employer], Pharmacy: [place], [place] Start Date: 11/05/16 Status: Orderedlisinopril 40 mg, Oral, Daily, 0 Refill(s), Start Date: 01/27/15 9:48:00 CDT Start Date: 01/27/15 Status: Orderedmeloxicam 15 mg oral tablet See Instructions, 1 tab(s) mg Oral Daily, # 90 tab(s), 0 Refill(s), Start Date: 03/21/15 10:45:00 CDT, Pharmacy: [place], [place] Special Instructions: 1 tab(s) mg Oral Daily Start Date: 03/21/15 Stop Date: 11/05/16 Status: CompletedmetFORMIN 250 mg, Oral, TID, 0 Refill(s), Start Date: 11/05/16 14:51:00 [employer] Special Instructions: TID Start Date: 11/05/16 Status: Orderedomeprazole 40 mg, Oral, Daily, 0 Refill(s), Start Date: 01/27/15 9:48:00 CDT Start Date: 01/27/15 Status: Orderedpravastatin 20 mg oral tablet 1 tab(s), Oral, Daily, # 30 tab(s), 2 Refill(s), Start Date: 11/05/16 15:37:00 [employer], Pharmacy: [place], [place] Start Date: 11/05/16 Status: Orderedsimvastatin Oral, HS, 0 Refill(s), Start Date: 01/27/15 9:48:00 CDT Start Date: 01/27/15 Stop Date: 11/05/16 Status: Completed Results No data available for this section Immunizations No data available for this section Procedures Procedure Date Related Diagnosis Body Site Abdominal hysterectomy Appendectomy Cholecystectomy Closed reduction of fracture of arm Closed reduction of fracture of patella without internal fixation CT guided kyphoplasty of fracture of lumbar spine Laminectomy Repair of diaphragmatic hiatal hernia Tonsillectomy Social History No data available for this section Assessment and Plan No data available for this section
== END 2017-02-17 01:20 | disposition left against medical advice (07) ==
LOC: ER 00:01
DX: Z53.21 Procedure and treatment not carried out due to patient leaving prior to being seen by health care provider (principal)